=== PATIENT | male | born 1945 | race Caucasian/White ===

== ENCOUNTER → 2016-07-28 | Outpatient (CLI) | payer MEDICARE, OTHER ==
[~2016-07-28] MED LIST: ALDACTONE25 MG PO; ASPIRIN (CHILDR81 MG PO; BIPAP; BRILINTA90 MG PO; BUMEX1 MG PO; CELEBREX200 MG PO; COREG25 MG PO; DELTASONE5 MG PO; DRISDOL 5050000 UNIT PO; ENTRESTO 24 MG1 EACH PO; HYDROCODON-ACE1 EAC4 PO; K-TAB ER20 MEQ PO; LIPITOR20 M1 PO; MELOXICAM15 MG PO; MUCOMYST 20200 MG/M1 PO; NITROSTAT0.4 MG SL; NORCO 5-325 MG1 TAB PO; PROTONIX40 MG PO; RANEXA1000 MG PO; RESTASIS1 EACH OPHTH; TIKOSYN500 MCG PO; ULTRAM50 MG PO; XALATAN2.5 ML OPHTH; XARELTO20 MG PO; ZAROXOLYN5 MG PO; ZYLOPRIM300 MG PO
== END | disposition disaster alternative care site (69) ==
LOC: GLAB 14:30
DX: I25.10 Atherosclerotic heart disease of native coronary artery without angina pectoris (principal); I48.91 Unspecified atrial fibrillation

== ENCOUNTER → 2016-09-30 | Outpatient (CLI) | payer MEDICARE, OTHER ==
[2016-09-30 17:12] LABS: BASOPHIL # 0.1 K/uL (0.0-0.2); BASOPHIL % 0.9 %; EOSINOPHIL # 0.2 K/uL (0.0-0.5); EOSINOPHIL % 3.1 %; HEMATOCRIT 37.6 % (37.0-53.0); HEMOGLOBIN 12.2 g/dL (11.0-16.0); IMMATURE GRANULOCYTE % 0.4 %; LYMPHOCYTE # 0.6 K/uL (0.8-4.0); LYMPHOCYTE % 11.4 %; MCH 32.2 pg (27.0-34.0); MCHC 32.4 gm/dL (32.0-36.5); MCV 99.2 fl (83.0-98.0); MONOCYTE # 0.8 K/uL (0.0-1.0); MONOCYTE % 13.6 %; MPV 10.7 fl (9.4-12.4); NEUTROPHIL # (ANC) 3.9 K/uL (1.4-9.0); NEUTROPHIL % 70.6 %; NRBC % 0 /100WBC (0-0.00); PLATELET COUNT 182 K/uL (150-450); RBC 3.79 M/uL (3.50-5.50); RDW-CV 13.3 % (11.9-14.6); WBC 5.5 K/uL (4.0-11.0)
[2016-09-30 17:29] LABS: ALBUMIN 3.5 gm/dL (3.5-5.0); ANION GAP 12.1 (10.0-19.0); CALCIUM 8.6 mg/dL (8.5-10.5); CREATININE 1.2 mg/dL (0.6-1.3); POTASSIUM 4.1 mMol/L (3.7-5.1); TOTAL BILIRUBIN 0.6 mg/dL (0.0-1.5); TOTAL PROTEIN 6.3 g/dL (6.0-8.4)
== END | disposition disaster alternative care site (69) ==
LOC: LNHI 17:01
PROVIDERS: Internal Medicine Cardiovascular Disease
DX: I25.119 Atherosclerotic heart disease of native coronary artery with unspecified angina pectoris (principal); I25.5 Ischemic cardiomyopathy; I48.0 Paroxysmal atrial fibrillation; N52.8 Other male erectile dysfunction